=== PATIENT | female | born 1970 | race Caucasian/White ===

== ENCOUNTER 2019-05-06 19:13 | Emergency (ER) | payer BC ==
--- NOTE | 2019-05-06 19:59 | Emergency Department Record ---
History of Present Illness - General Chief Complaint: Abdominal Pain Stated Complaint: RT SIDE RIB PAIN Time Seen by Provider: 05/06/19 19:30 Source: Patient Mode of Arrival: Ambulatory Limitations: No limitations - History of Present Illness Initial Comments: 49 yo female presents to ED for evaluation of right sided upper abdominal pain/lower rib pain symptoms that began 3 days ago following injury while bending over a car seat at home. Patient reports that she fell over the car seat when she slipped on ice resulting in injury to the affected area. Patient describes her pain as "sharp", denies fevers, chills, cough, or recent illness. Patient denies health problems at her baseline, and does not use anticoagulation medications at her baseline. Patient reports taking Motrin earlier today with improvement in her symptoms, rates pain at 7/10. MD Complaint: Abdominal pain Onset/Timin -: Days(s) Location: RUQ Radiation: Chest, RUQ Severity: Moderate Severity scale (1-10): 7 Quality: Sharp Consistency: Intermittent Improves With: Medication Worsens With: Movement, Other (Sneezing) Associated Symptoms: Denies other symptoms - Related Data LMP Date: 06/19/18 Patient : No Home Medications Medication Instructions Recorded Confirmed Last Taken Albuterol Sulfate [Proair Hfa] 1 puff INH Q6HR PRN 05/06/19 05/06/19 Unknown Buspirone HCl [Buspar] 7.5 mg PO DAILY PRN 05/06/19 05/06/19 Unknown Hydrochlorothiazide [Hctz] 1 tab PO DAILY 05/06/19 05/06/19 Unknown Allergies Allergy/AdvReac Type Severity Reaction Status Date / Time Sulfa (Sulfonamide Allergy BLISTERS Verified 05/06/19 19:55 Antibiotics) Travel/Exposure Screening - Travel/Exposure Within Last 30 Days Have you traveled within the last 30 days?: No - Travel/Exposure Within Last Year Have you traveled outside the [place] in the last year?: No - Additonal Travel/Exposure Details Have you been exposed to anyone with a communicable illness?: No - Travel Symptoms Symptom Screening: None Review of Systems Constitutional: Denies: Chills, Fever, Malaise, Night sweats Eyes: Denies: Eye discharge, Eye pain ENT: Denies: Congestion, Ear pain, Epistaxis Respiratory: Denies: Cough, Dyspnea Cardiovascular: Reports: Chest pain. Denies: Dyspnea on exertion, Palpitations Endocrine: Denies: Fatigue, Heat or cold intolerance Gastrointestinal: Reports: Abdominal pain. Denies: Nausea, Vomiting Genitourinary: Denies: Incontinence, Retention Musculoskeletal: Denies: Arthralgia, Back pain Skin: Denies: Bruising, Change in color Neurological: Denies: Abnormal gait, Confusion, Headache, Seizure Psychiatric: Denies: Anxiety Hematological/Lymphatic: Denies: Anemia, Blood Clots Past Medical History - SOCIAL HISTORY Smoking Status: Never smoker Alcohol Use: None Drug Use: None - RESPIRATORY Hx Respiratory Disorders: Yes Hx Asthma: Yes - CARDIOVASCULAR Hx Cardio Disorders: Yes Hx Hypertension: Yes - NEURO Hx Neuro Disorders: Yes Comment:: pseudotumor cerebrae - GI Hx GI Disorders: No - Hx Genitourinary Disorders: No - ENDOCRINE Hx Endocrine Disorders: No - MUSCULOSKELETAL Hx Musculoskeletal Disorders: No - PSYCH Hx Psych Problems: No - HEMATOLOGY/ONCOLOGY Hx Hematology/Oncology Disorders: No Family Medical History Any Significant Family History?: Yes Hx HTN: Father Physical Exam - General General Appearance: Alert, Oriented x3, Cooperative, Mild distress Limitations: No limitations - Head Head exam: Atraumatic, Normocephalic, Normal inspection Head exam detail: negative: Abrasion, Contusion, Thomas's sign, General tenderness, Hematoma, Laceration - Eye Eye exam: Normal appearance. negative: Conjunctival injection, Periorbital swelling, Periorbital tenderness, Scleral icterus - ENT Ear exam: negative: Auricular hematoma, Auricular trauma Nasal Exam: negative: Active bleeding, Discharge, Dried blood, Foreign body Mouth exam: negative: Drooling, Laceration, Muffled voice, Tongue elevation - Neck Neck exam: Normal inspection. negative: Meningismus, Tenderness - Respiratory Respiratory exam: Normal lung sounds bilaterally, Chest wall tenderness (TTP right lower ribs, TTP to the right upper quadrant of abilio abdomen on examination.). negative: Rales, Respiratory distress, Rhonchi, Stridor - Cardiovascular Cardiovascular Exam: Regular rate, Normal rhythm, Normal heart sounds - GI/Abdominal GI/Abdominal exam: Soft, Tenderness. negative: Rebound, Rigid - Rectal Rectal exam: Deferred - exam: Deferred - Extremities Extremities exam: Normal inspection. negative: Pedal edema, Tenderness - Back Back exam: Denies: CVA tenderness (R), CVA tenderness (L) - Neurological Neurological exam: Alert, Normal gait, Oriented X3 - Psychiatric Psychiatric exam: Normal affect, Normal mood - Skin Skin exam: Normal color. negative: Abrasion Type of lesion: negative: abrasion Course Vital Signs 05/06/19 19:22 Temperature 97.9 F Pulse Rate [ 75 Pulse Ox Probe] Respiratory 18 Rate Blood Pressure 156/93 [Left Arm] Pulse Ox 99 - Reevaluation(s) Reevaluation #1: 05/06/19 20:38 CT Abdomen and Pelvis: (2) Indeterminate hypodenisities within the left lobe of the liver measuring up to 1.6 cm, more dense then fluid. 3.8 cm lesion inseparable from the left hepatic lobe/lesser curvature of the stomach. Recommend contrast-enhanced MRI for further assessment. No rib fractures No acute inflammatory process of the abdomen. Patient was updated on all results and a copy of her CT imaging report was given to the patient. Patient was instructed to review her CT report with her PCP for further assessment and probable MRI as an outpatient. Patient reports that these lesions were previously evaluated in 2009 and she is aware of them. Patient's pain symptoms appear c/w contusion to the right lateral chest wall. Patient appears stable for discharge with instructions for close f/u with her PCP. Disposition Disposition: Discharge Clinical Impression: Liver lesion, left lobe Contusion of rib on right side Qualifiers: Encounter type: initial encounter Qualified Code(s): S20.211A - Contusion of right front wall of thorax, initial encounter Disposition: Home, Self-Care Condition: (2) Stable Instructions: Rib Contusion (ED) Additional Instructions: Return to ED if your symptoms worsen or if you have any concerns. Ibuprofen as directed. Review your CT imaging report concerning (2) liver lesions for further evaluation with your PCP. Follow-up with your family doctor in 3-5 days as directed. Forms: Patient Portal Access Time of Disposition: 20:43 Quality - Quality Measures Quality Measures: N/A - Blood Pressure Screening Does Patient Have Any of the Following: No Blood Pressure Classification: Hypertensive Reading Systolic Measurement: 156 Diastolic Measurement: 93 Screening for High Blood Pressure: < First Hypertensive BP, F/U Documented > [[id number]] First Hypertensive Follow-up Interventions: Referral to alternative/primary care provider.
--- NOTE | 2019-05-06 20:34 | CT SCAN REPORT ---
EXAMINATION: CHEST/ABDOMEN WO CONTRAST EXAM DATE: 05/06/2019 8:20 PM TECHNIQUE: Contiguous axial images from the thoracic inlet to the anterior superior iliac crest were obtained without contrast. INDICATION: right sided upper abdominal pain/right lower rib p COMPARISON: None FINDINGS: Lungs are clear. The heart is not enlarged and there is no pericardial effusion. No enlarged lymph nodes in the thorax . No coronary artery calcification. No fracture identified. The right ribs are intact. No lytic or blastic lesion. The liver is not enlarged. Within segment 2 of the liver there is a hypodense structure measuring 1.6 cm and 50 Hounsfield units which is indeterminate. Additional 1.4 cm hypodensity in segment 3 of sim ilar attenuation.At the lesser curvature of the stomach, there is an ovoid hypodense structure measur ing 40 Hounsfield units in density and 3.8 x 2.4 cm in size best seen on axial image 3, 14. This is i nseparable from the lateral segment of the left lower lobe. Remaining liver is unremarkable. The gallbladder is absent. There is a unilocular cyst in the upper right kidney measuring 2.5 cm. Obstructing calculus in the lo wer pole the right kidney measuring 1 mm best seen on sagittal image 63. Non obstructing 2 mm calcul us in the lower pole the left kidney. No hydronephrosis. The adrenals spleen and pancreas are normal. The stomach is nondistended. At the lesser curvature, there is an ovoid hypodense structure measuring 40 Hounsfield units in density and 3.8 x 2.4 cm in size best seen on axial image 3, 14 IMPRESSION: 1. 2 indeterminate hypodensities within the left lobe of the liver measuring up to 1.6 cm measuring greater than fluid density. Additional hypodense structure measuring up to 3.8 cm inseparable from th e lateral margin of the left hepatic lobe as well as the lesser curvature of the stomach. Differentia l would include benign or malignant hepatic lesion or GIST tumor of the stomach. Recommend contrast-e nhanced CT or MRI of the abdomen to better assess. 2. Nonobstructing 1 mm calculus in the lower pole the right kidney. Nonobstructing 2 mm calculus in the lower pole of the left kidney. 3. No acute intrathoracic process. No rib fractures. 4. No acute inflammatory process of the abdomen. Dictated by: Javad Maharaj MD on 05/06/2019 8:22 PM. .
== END 2019-05-06 20:58 | disposition home or self-care (01) ==
LOC: ER 19:13
DX: S20.211A Contusion of right front wall of thorax, initial encounter (principal); K76.9 Liver disease, unspecified; W00.0XXA Fall on same level due to ice and snow, initial encounter; Y92.007 Garden or yard of unspecified non-institutional (private) residence as the place of occurrence of the external cause; I10 Essential (primary) hypertension
CPT/HCPCS: 71250; 74150; 99284